=== PATIENT | female | born 1995 | race Caucasian/White ===

== ENCOUNTER 2018-11-02 12:47 | Emergency (ER) | payer BC ==
[2018-11-02 13:05] VITALS: BP 148/85
--- NOTE | 2018-11-02 13:51 | EDM.PDOC ---
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 The spotting changed from dark brown to bright red 2 days ago with increased pelvic cramping without radiation as well. She has had no chest, shoulder or other discomfort. No vomiting, fever or chills. 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 Denies: Fever, Chills, Diaphoresis HEENT: Denies: Throat Pain Respiratory: Denies: Shortness of Breath, Pleuritic Chest Pain Cardiovascular: Denies: Chest Pain GI/Abdominal: Reports: Abdominal Pain (low mid abd and pelvic). Denies: Nausea , Vomiting : Reports: Frequency. Denies: Dysuria Musculoskeletal: Denies: Back Pain Skin: Reports: No Symptoms Neurological: Reports: No Symptoms ED EXAM - Physical Exam Exam: See Below General Appearance: Alert, No Apparent Distress Eye Exam: Bilateral Eye: PERRL Throat/Mouth: Normal Inspection Head: Atraumatic Neck: Supple, Full Range of Motion Respiratory/Chest: No Respiratory Distress, Lungs Clear, Normal Breath Sounds GI/Abdominal Exam: Soft, Tender (very minimal tenderness R lower abd/pelvis). No: Guarding, Rebound Neurological: Alert, Oriented Skin Exam: Warm, Dry, Normal Color Course - Vital Signs Last Recorded V/S: Last Vital Signs Temp 98 F 11/02/18 13:02 Pulse 94 11/02/18 13:02 Resp 18 11/02/18 13:02 BP 148/85 H 11/02/18 13:02 Pulse Ox 100 11/02/18 13:02 Orthostatic Blood Pressure [ 123/85 Standing] Orthostatic Blood Pressure [ 117/78 Sitting] Orthostatic Blood Pressure [ 126/78 Supine] - Orders/Labs/Meds Labs: Laboratory Tests 11/02/18 11/02/18 11/02/18 Range/Units 13:24 13:34 13:34 WBC 8.51 (3.98-10.04) K/mm3 RBC 4.67 (3.98-5.22) M/mm3 Hgb 13.6 (11.2-15.7) gm/L Hct 40.8 (34.1-44.9) % MCV 87.4 (79.4-94.8) fl MCH 29.1 (25.6-32.2) pg MCHC 33.3 (32.2-35.5) g/dl RDW Std Deviation 39.0 (36.4-46.3) fL Plt Count 274 (182-369) K/mm3 MPV 9.9 (9.4-12.3) fl Neut % (Auto) 61.6 (34.0-71.1) % Lymph % (Auto) 30.9 (19.3-51.7) % [place] % (Auto) 5.8 (4.7-12.5) % Eos % (Auto) 1.2 (0.7-5.8) Baso % (Auto) 0.4 (0.1-1.2) % Neut # (Auto) 5.25 (1.56-6.13) K/mm3 Lymph # (Auto) 2.63 (1.18-3.74) K/mm3 [place] # (Auto) 0.49 H (0.24-0.36) K/mm3 Eos # (Auto) 0.10 (0.04-0.36) K/mm3 Baso # (Auto) 0.03 (0.01-0.08) K/mm3 HCG, Quant 5631.0 mIU/mL Blood Type B POSITIVE Gel Antibody Screen Negative - Re-Assessments/Exams Free Text/Narrative Re-Assessment/Exam: 11/02/18 14:56 Pelvic US has been done, shows slightly irregular gestational sac with measurements of 6 weeks, 1 day, there is some tissue seen within gest. sac showing no heart activity. 11/02/18 16:14 quant Hcg 5,600, correlates with loss of . Have discussed with patient and her , She does have a follow up appt. with Dr Sushil Sutton 2 days from now. Departure - Departure Time of Disposition: 15:28 Disposition: Home, Self-Care 01 Condition: Fair Clinical Impression: Nonviable - Discharge Information Instructions: Miscarriage, [id number] Referrals: Jazz Pan MD [Physician] - Forms: ED Department Discharge, ED Return to Work/School Form Additional Instructions: rest, you may take tylenol or ibuprofen if needed for pain, drink plenty of water to maintain hydration. See Dr Sushil Sutton as planned. Return to ED if soaking more than a pad per hour for more than 2 or 3 hours or otherwise as needed.
--- NOTE | 2018-11-02 14:36 | US ---
First trimester obstetrical ultrasound: Multiple real-time images were obtained transvaginally. Comparison: No previous study for current . Findings: Slightly irregular gestational sac is seen. Small subchorionic hemorrhage is noted. Small clump of tissue is seen within the gestational sac showing no heart activity. Prominent varicosities are noted within the left adnexa. Right and left ovaries are unremarkable. Impression: 1. Slightly irregular gestational sac having measurements of 6 weeks and 1 day. Clump of tissue is seen within the gestational sac showing no heart activity. Findings are suspicious for nonviable . Small subchorionic hemorrhage is seen. 2. Recommend follow-up study in 11 days to confirm nonviable if patient does not miscarry in the interim. 3. Varicosities within the left adnexa. Diagnostic code #3
== END 2018-11-02 16:15 | disposition home or self-care (01) ==
LOC: JD.ED 12:47
DX: O36.80X0 Pregnancy with inconclusive fetal viability, not applicable or unspecified (principal); E03.9 Hypothyroidism, unspecified; Z79.899 Other long term (current) drug therapy; Z3A.10 10 weeks gestation of pregnancy
CPT/HCPCS: 36415; 76817; 76817-26; 84702; 85025; 86850; 86900; 86901; 99282; 99284-25

== ENCOUNTER 2019-12-03 10:37 | Emergency (ER) | payer BC ==
[2019-12-03 10:47] VITALS: BP 125/79; PULSE 88
[2019-12-03] MEDS ORDERED: Acetaminophen 325 MG Tab PO ONE (11:37)
--- NOTE | 2019-12-03 11:38 | EDM.PDOC ---
ED HPI GENERAL MEDICAL PROBLEM - General Chief Complaint: Lower Extremity Injury/Pain Stated Complaint: INJURED RIGHT FOOT Time Seen by Provider: 12/03/19 11:22 Source of Information: Reports: Patient, RN Notes Reviewed History Limitations: Reports: No Limitations - History of Present Illness INITIAL COMMENTS - FREE TEXT/NARRATIVE: Patient is a 24-year-old female who presents to the ED for a right foot injury. Patient is 30 weeks . She states that around 5:30 this morning she was rushing around to get to work, carrying some things in her both hands when she fell down the stairs. The patient states that she ended up hurting her right foot, she is having most pain in her lateral midfoot area, there is some bruising and swelling noted to this area as well. The patient finds it hard to wiggle her toes due to the pain, she was checked out by TRUST MAIL CLERK regarding movement, and was cleared by OB for evaluation of her ankle/foot injury at this time. She is not having any numbness tingling into her toes, she did ice it while in OB, not having any pain further up the leg. She did not take any sort of pain medications at home for this. 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 ED EXAM, GENERAL - Physical Exam Exam: See Below Exam Limited By: No Limitations General Appearance: Alert, WD/WN, No Apparent Distress Eye Exam: Bilateral Eye: EOMI, Normal Inspection, PERRL Ears: Normal External Exam Nose: Normal Inspection Throat/Mouth: Normal Inspection, Normal Lips, Normal Teeth, Normal Gums, Normal Oropharynx, Normal Voice, No Airway Compromise Head: Atraumatic, Normocephalic Neck: Normal Inspection Respiratory/Chest: No Respiratory Distress, Lungs Clear, Normal Breath Sounds, No Accessory Muscle Use, Chest Non-Tender Cardiovascular: Normal Peripheral Pulses, Regular Rate, Rhythm, No Murmur GI/Abdominal: Normal Bowel Sounds, Soft, Non-Tender, No Distention, No Mass Extremities: Normal Inspection, Normal Capillary Refill, Limited Range of Motion (of R ankle/foot d/t pain, patient is still able to wiggle toes, but hurts to do so.) Neurological: Alert, Oriented, Normal Cognition, No Motor/Sensory Deficits Psychiatric: Normal Affect, Normal Mood Skin Exam: Warm, Dry, Intact, No Rash, Ecchymosis (R lateral midfoot) Course - Vital Signs Last Recorded V/S: Last Vital Signs Temp 97.3 F 12/03/19 10:44 Pulse 88 12/03/19 10:44 Resp 18 12/03/19 10:44 BP 125/79 12/03/19 10:44 Pulse Ox 99 12/03/19 10:44 - Orders/Labs/Meds Orders: Active Orders 24 hr Category Date Time Status Foot Comp Min 3V Rt [CR] Stat Exams 12/03/19 11:30 Ordered MIKE Bandage [Elastic Wrap] [OM.PC] Routine Oth 12/03/19 12:36 Ordered DME for Discharge [COMM] Routine Oth 12/03/19 12:36 Ordered Meds: Medications Discontinued Medications Generic Name Dose Route Start Last Admin Trade Name Freq PRN Reason Stop Dose Admin Acetaminophen 975 mg 12/03/19 11:37 12/03/19 11:44 Tylenol PO 12/03/19 11:38 975 mg NOW ONE Administration - Re-Assessments/Exams Free Text/Narrative Re-Assessment/Exam: 12/03/19 11:41 Patient presents to the ED for evaluation of her right foot/ankle injury. She was cleared by TRUST MAIL CLERK for further evaluation in the ER at this time. Patient will have to get x-rays of the right foot, I am hopeful that we can get enough of the ankle to evaluate any other sort of ankle injury. Patient will be given some Tylenol for pain relief at this time to see if it does not help. 12/03/19 12:37 X-ray was obtained of the patient's foot, there is no obvious bony fracture or abnormality noted. Reviewed by myself and Dr. Adrian. Official radiology read is pending. Patient did have a little bit of pain relief from the Tylenol , I will advise her to take Tylenol as much as needed for pain relief, and give her a few tablets of Percocet for pain relief not provided by Tylenol alone. She will be discharged home with Mike bandages and crutches for a foot sprain. Departure - Departure Time of Disposition: 12:39 Disposition: Home, Self-Care 01 Condition: Fair Clinical Impression: Right foot injury Qualifiers: Encounter type: initial encounter Qualified Code(s): S99.921A - Unspecified injury of right foot, initial encounter - Discharge Information *PRESCRIPTION DRUG MONITORING PROGRAM REVIEWED*: Yes *COPY OF PRESCRIPTION DRUG MONITORING REPORT IN PATIENT JOSE: No Prescriptions: Acetaminophen/oxyCODONE [Percocet 325-5 MG] 1 each PO Q6H PRN #12 tab PRN Reason: Pain Instructions: Pain Medicine Instructions, [id number] Referrals: Caitlin Ramirez PA-C [Primary Care Provider] - Forms: ED Department Discharge, ED Return to Work/School Form Additional Instructions: You have been evaluated in the ED for your right foot/ankle injury. Your x-ray demonstrated no obvious fracture or bony abnormality of your right foot/ankle. Please Mike wrap this for compression, and use the crutches as needed for further walking issues. Please use ice as tolerated to the affected area. Please try to elevate the affected area to relieve swelling. You may take Tylenol 500 mg q6 hrs for pain relief. Please do so until you have a tolerable level of pain with activity. Do not exceed 4000mg Tylenol in a 24 hour time period. You were given a prescription for a strong pain medication, oxycodone/ acetaminophen 5/325mg, please take 1 tab every 6 hours as needed for pain not relieved by Tylenol alone. Please note this medication does contain Tylenol in it, so do not take more than 4000 mg in a 24-hour time span. These medications can be addictive, so please take as few as possible to achieve adequate pain control. These meds can also be quite constipating, recommend that you increase your oral fluid intake and take a stool softener like MiraLAX while taking these medications. Do not drive while taking this medication. If your pain is not feeling much better in 10 days to 2 weeks time, recommend you have your injury re-evaluated. Please return to ED if your symptoms should change or worsen. Sepsis Event Note - Evaluation Sepsis Screening Result: No Definite Risk - Focused Exam Vital Signs: Vital Signs Temp Pulse Resp BP Pulse Ox 12/03/19 10:44 97.3 F 88 18 125/79 99 Date Exam was Performed: 12/03/19 Time Exam was Performed: 12:37 - My Orders Last 24 Hours: My Active Orders 12/03/19 11:30 Foot Comp Min 3V Rt [CR] Stat 12/03/19 12:36 MIKE Bandage [Elastic Wrap] [OM.PC] Routine DME for Discharge [COMM] Routine - Assessment/Plan Last 24 Hours: My Active Orders 12/03/19 11:30 Foot Comp Min 3V Rt [CR] Stat 12/03/19 12:36 MIKE Bandage [Elastic Wrap] [OM.PC] Routine DME for Discharge [COMM] Routine
--- NOTE | 2019-12-03 13:35 | CR ---
Right foot: Four views of the right foot were obtained. Joint spaces are preserved. No fracture, dislocation or other bony abnormality is identified. Impression: 1. No abnormality is appreciated on right foot exam. Diagnostic code #1 This report was dictated in MDT
== END 2019-12-03 12:58 | disposition home or self-care (01) ==
LOC: JD.ED 10:37
DX: O9A.213 Injury, poisoning and certain other consequences of external causes complicating pregnancy, third trimester (principal); S99.921A Unspecified injury of right foot, initial encounter; O99.283 Endocrine, nutritional and metabolic diseases complicating pregnancy, third trimester; E03.9 Hypothyroidism, unspecified; Z3A.30 30 weeks gestation of pregnancy
CPT/HCPCS: 73630; 99283; A9270

== ENCOUNTER 2020-02-05 05:40 | Inpatient (IN) | payer BC ==
[~2020-02-05 05:40] MED LIST: Sodium Chloride 0.9% 10 ML Syringe FLUSH PRN
[2020-02-05] MEDS: Lactated Ringers 1,000 ML IV SCH ×2 (06:00→06:33)
[2020-02-05] MEDS ORDERED: ceFAZolin 1 GM Vial ONE (06:58)
[2020-02-05] MEDS ORDERED: Ondansetron 4 MG/2 ML SDV ONE (06:58)
[2020-02-05] MEDS ORDERED: Ketorolac 30 MG/ML SDV ONE (06:58)
[2020-02-05] MEDS ORDERED: Morphine PF 1 MG/ML Amp ONE (06:58)
[2020-02-05] MEDS ORDERED: Lactated Ringers 2,000 ML ONE (06:58)
[2020-02-05] MEDS ORDERED: Oxytocin 10 Units/1 ML SDV ONE (06:58)
[2020-02-05] MEDS ORDERED: Phenylephrine 1% 10 MG/ML SDV ONE (06:58)
[2020-02-05] MEDS ORDERED: ceFAZolin 2 GM in Premix Bag 1 BAG IV ONE (07:00)
[2020-02-05] MEDS ORDERED: Citric Acid/Sodium Citrate Solution 30 ML Cup PO ONE (07:00)
[2020-02-05] MEDS ORDERED: Metoclopramide 10 MG/2 ML SDV IVPUSH ONE (07:00)
--- NOTE | 2020-02-05 07:24 | PCM.OPNOTE ---
- General Post-Op/Procedure Note Date of Surgery/Procedure: 02/05/20 Operative Procedure(s): Repeat low transverse Findings: Minimal scar tissue between the rectus and fascia. Minimal scar tissue between the uterus and bladder. Baby boy in vertex presentation with weight of 7 lbs 8 oz and APGARS of 9 & 9. Normal appearance of the uterus, fallopian tubes, and ovaries . Pre Op Diagnosis: 39 weeks gestation. Hx of Post-Op Diagnosis: Same Anesthesia Technique: Spinal Primary Surgeon: Jazz Pan Secondary Surgeon: Nghia William Anesthesia Provider: Maryam Jones Reason Switch Coupler Was Necessary: BMI of patient. Speed/safety of procedure Pathology: Cord blood collected. Placenta discarded Fluid Replacement, Intraop: 900 Output, Urine Amount: 150 EBL in mLs: 10,000 Complications: None Condition: Good Free Text/Narrative:: The risks, benefits, indications, potential complications, and alternatives were explained to the patient and informed consent obtained. After induction of anesthesia, the patient was placed in a supine position and then draped and prepped in the usual sterile manner. A Pfannenstiel incision was made and carried down through the subcutaneous tissue to the fascia. Fascial incision was made and extended transversely. The fascia was from the underlying rectus tissue superiorly and inferiorly. The peritoneum was identified and entered. Peritoneal incision was extended longitudinally. The utero-vesical peritoneal reflection was incised transversely and the bladder flap was bluntly freed from the lower uterine segment. A low transverse uterine incision was made sharply with a scalpel and extended bluntly in a cephalocaudad direction. Brisk bleeding from sinuses noted with initial hysterotomy creation. A baby boy was delivered from a vertex presentation with APGARS as above. After the umbilical cord was clamped and cut cord blood was obtained for evaluation. The placenta was removed intact and appeared normal. The uterus was exteriorized and cleared of clots. Bleeding now at more normal level. The uterine outline, tubes and ovaries appeared normal. The uterine incision was closed with running locked sutures of 0 Vicryl. Hemostasis was obtained with a second imbricating layer of 0 vicryl. The uterus was then placed back into the abdomen. The infracolic gutters were cleared of blood clots. The fascia was then reapproximated with running sutures of 0 Vicryl. The subcutaneous tissue was irrigated with sterile warm normal saline, hemostasis obtained with cautery. This layer was also closed with a running suture of 0 Vicryl. The skin was reapproximated with running Subcuticular 4-0 Monocryl sutures. Instrument, sponge, and needle counts were correct prior the abdominal closure and at the conclusion of the case.
--- NOTE | 2020-02-05 07:27 | PCM.PREANE ---
Preanesthetic Assessment - Anesthesia/Transfusion/Family Hx Anesthesia History: Prior Anesthesia Without Reaction Family History of Anesthesia Reaction: No Transfusion History: No Prior Transfusion(s) Intubation History: Unknown - Review of Systems General: No Symptoms Pulmonary: No Symptoms (COVID negative) Cardiovascular: No Symptoms Gastrointestinal: No Symptoms (GERD with ), Constipation (with ) Neurological: No Symptoms Other: Reports: None, Easy Bruising, Thyroid Problems (Hypothyroid) - Physical Assessment NPO Status Date: 02/04/20 NPO Status Time: 23:30 Vital Signs: Last Vital Signs Temp 37.1 C 02/05/20 05:57 Pulse 76 02/05/20 05:57 Resp 16 02/05/20 05:57 BP 126/93 H 02/05/20 06:07 Pulse Ox 98 02/05/20 05:57 Height: 1.73 m Weight: 91.535 kg ASA Class: 2 Mental Status: Alert & Oriented x3 Airway Class: Mallampati = 2 Dentition: Reports: Normal Dentition, Caries Thyro-Mental Finger Breadths: 3 Mouth Opening Finger Breadths: 3 ROM/Head Extension: Full Lungs: Clear to Auscultation, Normal Respiratory Effort Cardiovascular: Regular Rate, Regular Rhythm, No Murmurs - Lab Values: Laboratory Last Values WBC 10.68 K/mm3 (3.98-10.04) H 02/05/20 06:08 RBC 4.35 M/mm3 (3.98-5.22) 02/05/20 06:08 Hgb 13.1 gm/dl (11.2-15.7) 02/05/20 06:08 Hct 39.7 % (34.1-44.9) 02/05/20 06:08 MCV 91.3 fl (79.4-94.8) D 02/05/20 06:08 MCH 30.1 pg (25.6-32.2) 02/05/20 06:08 MCHC 33.0 g/dl (32.2-35.5) 02/05/20 06:08 RDW Std Deviation 42.2 fL (36.4-46.3) 02/05/20 06:08 Plt Count 157 K/mm3 (182-369) L D 02/05/20 06:08 MPV 11.8 fl (9.4-12.3) 02/05/20 06:08 Neut % (Auto) 61.5 % (34.0-71.1) 02/05/20 06:08 Lymph % (Auto) 27.3 % (19.3-51.7) 02/05/20 06:08 [place] % (Auto) 8.9 % (4.7-12.5) 02/05/20 06:08 Eos % (Auto) 1.9 (0.7-5.8) 02/05/20 06:08 Baso % (Auto) 0.2 % (0.1-1.2) 02/05/20 06:08 Neut # (Auto) 6.57 K/mm3 (1.56-6.13) H 02/05/20 06:08 Lymph # (Auto) 2.92 K/mm3 (1.18-3.74) 02/05/20 06:08 [place] # (Auto) 0.95 K/mm3 (0.24-0.36) H 02/05/20 06:08 Eos # (Auto) 0.20 K/mm3 (0.04-0.36) 02/05/20 06:08 Baso # (Auto) 0.02 K/mm3 (0.01-0.08) 02/05/20 06:08 Above labs reviewed and noted and within acceptable ranges to proceed with scheduled procedure. 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: , Spontaneous , Other (See Below) Other OB/BYN History: 2013 Endocrine/Metabolic History: Reports: Hypothyroidism - Past Surgical History GI Surgical History: Reports: Appendectomy Female Surgical History: Reports: Section - SUBSTANCE USE Smoking Status *Q: Never Smoker Tobacco Use Within Last Twelve Months: No Second Hand Smoke Exposure: No Recreational Drug Use History: No - HOME MEDS Home Medications: Home Meds Prenat 115/Iron Fum/Folic/Dss [ 19 Tablet] 1 tab PO DAILY 12/03/19 [ History] Levothyroxine 75 mcg PO ACBREAKFAST 02/05/20 [History] - CURRENT (IN HOUSE) MEDS Current Meds: Current Medications Cefazolin Sodium/Dextrose 2 gm (/ Premix) 50 mls @ 100 mls/hr IV ONETIME ONE Stop: 02/05/20 07:29 Lactated Ringer's (Ringers, Lactated) 1,000 mls @ 125 mls/hr IV ASDIRECTED YECENIA Last Admin: 02/05/20 06:33 Dose: 125 mls/hr Oxytocin/Lactated Ringer's (Pitocin In Lr 10 Units/1,000 Ml) 10 unit in 1,000 mls @ 100 mls/hr IV ASDIRECTED YECENIA; Protocol Sodium Chloride (Saline Flush) 10 ml FLUSH ASDIRECTED PRN PRN Reason: Keep Vein Open Discontinued Medications Cefazolin Sodium (Ancef) Confirm Administered Dose 2 gm .ROUTE .STK-MED ONE Stop: 02/05/20 06:59 Citric Acid/Sodium Citrate (Bicitra Solution) 30 ml PO ONETIME ONE Stop: 02/05/20 07:01 Last Admin: 02/05/20 07:00 Dose: 30 ml Lactated Ringer's (Ringers, Lactated) Confirm Administered Dose 2,000 mls @ as directed .ROUTE .STK-MED ONE Stop: 02/05/20 06:59 Ketorolac Tromethamine (Toradol) Confirm Administered Dose 30 mg .ROUTE .STK- MED ONE Stop: 02/05/20 06:59 Metoclopramide HCl (Reglan) 10 mg IVPUSH ONETIME ONE Stop: 02/05/20 07:01 Last Admin: 02/05/20 07:00 Dose: 10 mg Morphine Sulfate (Duramorph Pf) Confirm Administered Dose 1 mg .ROUTE .STK-MED ONE Stop: 02/05/20 06:59 Ondansetron HCl (Zofran) Confirm Administered Dose 4 mg .ROUTE .STK-MED ONE Stop: 02/05/20 06:59 Oxytocin (Pitocin) Confirm Administered Dose 10 unit .ROUTE .STK-MED ONE Stop: 02/05/20 06:59 Phenylephrine HCl (Mohan-Synephrine) Confirm Administered Dose 10 mg .ROUTE .STK- MED ONE Stop: 02/05/20 06:59
[2020-02-05] MEDS ORDERED: Oxytocin/Lactated Ringers 10 UNIT/1,000 ML BAG IV SCH (07:30)
[2020-02-05] MEDS ORDERED: ePHEDrine 50 MG/ML SDV IVPUSH PRN (07:53)
[2020-02-05] MEDS ORDERED: Ondansetron 4 MG/2 ML SDV IVPUSH PRN (07:53)
[2020-02-05] MEDS ORDERED: fentaNYL 100 MCG/2 ML SDV IVPUSH PRN (07:53)
[2020-02-05] MEDS ORDERED: diphenhydrAMINE 50 MG/ML SDV IVPUSH PRN ×2 (07:53→10:23)
[2020-02-05] MEDS ORDERED: HYDROmorphone 0.5 MG/0.5 ML Syringe IVPUSH PRN (07:54)
[2020-02-05] MEDS ORDERED: Phenylephrine 1 MG in Sodium Chloride 0.9% 10 ML IV SCH (08:00)
[2020-02-05] MEDS ORDERED: fentaNYL 100 MCG/2 ML SDV ONE (08:18)
--- NOTE | 2020-02-05 08:39 | PCM.POSTAN ---
POST ANESTHESIA ASSESSMENT - MENTAL STATUS Mental Status: Alert - VITAL SIGNS Vital Signs: Last Vital Signs Temp 98 C 02/05/20 0830 Pulse 76 02/05/20 0830 Resp 11 02/05/20 0830 BP 109/65 02/05/20 0830 Pulse Ox 98 02/05/20 0830 - CARDIOVASCULAR CV Status: Pulse Rate WNL, Blood Pressure Stable - GASTROINTESTINAL GI Status: No Symptoms - POST OP HYDRATION Hydration Status: Adequate & Stable
[2020-02-05] MEDS ORDERED: Naloxone 0.4 MG/ML SDV IVPUSH PRN (10:23)
[2020-02-05] MEDS ORDERED: Ondansetron 4 MG/2 ML SDV IV PRN (10:23)
[2020-02-05] MEDS ORDERED: Dextrose 5%-Lactated Ringers 1,000 ML IV SCH (10:23)
[2020-02-05] MEDS ORDERED: Docusate Sodium 100 MG Cap PO PRN (10:23)
[2020-02-05] MEDS ORDERED: Acetaminophen/oxyCODONE 325-5 MG Tab PO PRN (10:23)
[2020-02-05] MEDS ORDERED: Promethazine 12.5 MG in Sodium Chloride 0.9% 50 ML IV PRN (14:23)
[2020-02-05] MEDS: Ketorolac 30 MG/ML SDV IVPUSH SCH ×2 (14:35→22:51)
[2020-02-05] MEDS ORDERED: Lactated Ringers 500 ML IV ONE (15:13)
--- NOTE | 2020-02-05 15:45 | PCM.SN.2 ---
- Free Text/Narrative Note: 1530 Patient with 2 large emesis episodes. Has taken small-moderate amount of PO. UOP low, however, HR and BP all appropriate. Exam shows abdomen to be soft, appropriately tender. No suspicion of on-going bleeding. Likely low UOP from above concerns in addition to 1L EBL at surgery. Will give a 500 cc bolus. Continue to monitor otherwise routinely Jazz Pan MD
[2020-02-06] MEDS ORDERED: Ketorolac 30 MG/ML SDV ONE (05:10)
[2020-02-06] MEDS: Ketorolac 30 MG/ML SDV IVPUSH SCH (05:13)
[2020-02-06] MEDS: Levothyroxine 75 MCG Tab PO SCH (05:14)
--- NOTE | 2020-02-06 07:51 | PCM.SN.2 ---
- Free Text/Narrative Note: PPD#1/POD#! Afebrile, chest clear to auscultation, Heart normal rate and rhythm, abdomen bowel sounds present, uterus 3 FB below umbilicus, Incision dressing ok. No heavy vaginal bleeding, no leg cramps.
[2020-02-06] MEDS: Acetaminophen/oxyCODONE 325-5 MG Tab PO PRN ×2 (12:42→17:32)
[2020-02-06] MEDS: Ibuprofen 600 MG Tab PO PRN (20:56)
[2020-02-07] MEDS: Ibuprofen 600 MG Tab PO PRN ×2 (03:09→10:34)
[2020-02-07] MEDS: Levothyroxine 75 MCG Tab PO SCH (05:09)
[2020-02-07 10:16] VITALS: BP 118/70; PULSE 90
--- NOTE | 2020-02-07 11:07 | PCM.DCSUM1 ---
Discharge Summary - Hospital Course Free Text/Narrative:: [facility] Post-Op/Procedure Note Patient Name: JUNO HERRERA Date of : 89 Patient Status: Inpatient Attending Provider: Jazz Pan Date: 02/05/20 07:24 Initialization Date: 02/05/20 07:24 - General Post-Op/Procedure Note Date of Surgery/Procedure: 02/05/20 Operative Procedure(s): Repeat low transverse Findings: Minimal scar tissue between the rectus and fascia. Minimal scar tissue between the uterus and bladder. Baby boy in vertex presentation with weight of 7 lbs 8 oz and APGARS of 9 & 9. Normal appearance of the uterus, fallopian tubes, and ovaries . Pre Op Diagnosis: 39 weeks gestation. Hx of Post-Op Diagnosis: Same Anesthesia Technique: Spinal Primary Surgeon: Jazz Pan Secondary Surgeon: Nghia William Anesthesia Provider: Maryam Jones Reason Outside Installation Machinist Was Necessary: BMI of patient. Speed/safety of procedure Pathology: Cord blood collected. Placenta discarded Fluid Replacement, Intraop: 900 Output, Urine Amount: 150 EBL in mLs: 10,000 Complications: None Condition: Good Free Text/Narrative:: The risks, benefits, indications, potential complications, and alternatives were explained to the patient and informed consent obtained. After induction of anesthesia, the patient was placed in a supine position and then draped and prepped in the usual sterile manner. A Pfannenstiel incision was made and carried down through the subcutaneous tissue to the fascia. Fascial incision was made and extended transversely. The fascia was from the underlying rectus tissue superiorly and inferiorly. The peritoneum was identified and entered. Peritoneal incision was extended longitudinally. The utero-vesical peritoneal reflection was incised transversely and the bladder flap was bluntly freed from the lower uterine segment. A low transverse uterine incision was made sharply with a scalpel and extended bluntly in a cephalocaudad direction. Brisk bleeding from sinuses noted with initial hysterotomy creation. A baby boy was delivered from a vertex presentation with APGARS as above. After the umbilical cord was clamped and cut cord blood was obtained for evaluation. The placenta was removed intact and appeared normal. The uterus was exteriorized and cleared of clots. Bleeding now at more normal level. The uterine outline, tubes and ovaries appeared normal. The uterine incision was closed with running locked sutures of 0 Vicryl. Hemostasis was obtained with a second imbricating layer of 0 vicryl. The uterus was then placed back into the abdomen. The infracolic gutters were cleared of blood clots. The fascia was then reapproximated with running sutures of 0 Vicryl. The subcutaneous tissue was irrigated with sterile warm normal saline, hemostasis obtained with cautery. This layer was also closed with a running suture of 0 Vicryl. The skin was reapproximated with running Subcuticular 4-0 Monocryl sutures. Instrument, sponge, and needle counts were correct prior the abdominal closure and at the conclusion of the case. HPI Initial Comments: [facility] Post-Op/Procedure Note Patient Name: JUNO HERRERA Date of : 89 Patient Status: Inpatient Attending Provider: Jazz Pan Date: 02/05/20 07:24 Initialization Date: 02/05/20 07:24 - General Post-Op/Procedure Note Date of Surgery/Procedure: 02/05/20 Operative Procedure(s): Repeat low transverse Findings: Minimal scar tissue between the rectus and fascia. Minimal scar tissue between the uterus and bladder. Baby boy in vertex presentation with weight of 7 lbs 8 oz and APGARS of 9 & 9. Normal appearance of the uterus, fallopian tubes, and ovaries . Pre Op Diagnosis: 39 weeks gestation. Hx of Post-Op Diagnosis: Same Anesthesia Technique: Spinal Primary Surgeon: Jazz Pan Secondary Surgeon: Nghia William Anesthesia Provider: Maryam Jones Reason Outside Installation Machinist Was Necessary: BMI of patient. Speed/safety of procedure Pathology: Cord blood collected. Placenta discarded Fluid Replacement, Intraop: 900 Output, Urine Amount: 150 EBL in mLs: 10,000 Complications: None Condition: Good Free Text/Narrative:: The risks, benefits, indications, potential complications, and alternatives were explained to the patient and informed consent obtained. After induction of anesthesia, the patient was placed in a supine position and then draped and prepped in the usual sterile manner. A Pfannenstiel incision was made and carried down through the subcutaneous tissue to the fascia. Fascial incision was made and extended transversely. The fascia was from the underlying rectus tissue superiorly and inferiorly. The peritoneum was identified and entered. Peritoneal incision was extended longitudinally. The utero-vesical peritoneal reflection was incised transversely and the bladder flap was bluntly freed from the lower uterine segment. A low transverse uterine incision was made sharply with a scalpel and extended bluntly in a cephalocaudad direction. Brisk bleeding from sinuses noted with initial hysterotomy creation. A baby boy was delivered from a vertex presentation with APGARS as above. After the umbilical cord was clamped and cut cord blood was obtained for evaluation. The placenta was removed intact and appeared normal. The uterus was exteriorized and cleared of clots. Bleeding now at more normal level. The uterine outline, tubes and ovaries appeared normal. The uterine incision was closed with running locked sutures of 0 Vicryl. Hemostasis was obtained with a second imbricating layer of 0 vicryl. The uterus was then placed back into the abdomen. The infracolic gutters were cleared of blood clots. The fascia was then reapproximated with running sutures of 0 Vicryl. The subcutaneous tissue was irrigated with sterile warm normal saline, hemostasis obtained with cautery. This layer was also closed with a running suture of 0 Vicryl. The skin was reapproximated with running Subcuticular 4-0 Monocryl sutures. Instrument, sponge, and needle counts were correct prior the abdominal closure and at the conclusion of the case. Brief History: [facility] . Post-Op/Procedure Note. Patient Name: JUNO HERRERA [facility] Record Number: [id number]. Date of : Patient Status: Inpatient. Attending Provider: Jazz Pan CAccount Number : [id number]. Date: 02/05/20 07:24Initialization Date: 02/05/20 07:24. - General Post-Op/Procedure Note. Date of Surgery/Procedure: 02/05/20. Operative Procedure(s): Repeat low transverse . Findings: Minimal scar tissue between the rectus and fascia. Minimal scar tissue between the uterus and bladder. Baby boy in vertex presentation with weight of 7 lbs 8 oz and APGARS of 9 & 9. Normal appearance of the uterus, fallopian tubes, and ovaries . Pre Op Diagnosis: 39 weeks gestation. Hx of . Post-Op Diagnosis: Same. Anesthesia Technique: Spinal. Primary Surgeon: Jazz Pan. Secondary Surgeon: Nghia William. Anesthesia Provider: Maryam Jones. Reason Outside Installation Machinist Was Necessary: BMI of patient. Speed/safety of procedure. Pathology: Cord blood collected. Placenta discarded. Fluid Replacement, Intraop: 900. Output, Urine Amount: 150. EBL in mLs: 10,000. Complications: None. Condition: Good. Free Text/Narrative:: The risks, benefits, indications, potential complications, and alternatives were explained to the patient and informed consent obtained. After induction of anesthesia, the patient was placed in a supine position and then draped and prepped in the usual sterile manner. A Pfannenstiel incision was made and carried down through the subcutaneous tissue to the fascia. Fascial incision was made and extended transversely. The fascia was from the underlying rectus tissue superiorly and inferiorly. The peritoneum was identified and entered. Peritoneal incision was extended longitudinally. The utero-vesical peritoneal reflection was incised transversely and the bladder flap was bluntly freed from the lower uterine segment. A low transverse uterine incision was made sharply with a scalpel and extended bluntly in a cephalocaudad direction. Brisk bleeding from sinuses noted with initial hysterotomy creation. A baby boy was delivered from a vertex presentation with APGARS as above. After the umbilical cord was clamped and cut cord blood was obtained for evaluation. The placenta was removed intact and appeared normal. The uterus was exteriorized and cleared of clots. Bleeding now at more normal level. The uterine outline, tubes and ovaries appeared normal. The uterine incision was closed with running locked sutures of 0 Vicryl. Hemostasis was obtained with a second imbricating layer of 0 vicryl. The uterus was then placed back into the abdomen. The infracolic gutters were cleared of blood clots. The fascia was then reapproximated with running sutures of 0 Vicryl. The subcutaneous tissue was irrigated with sterile warm normal saline, hemostasis obtained with cautery. This layer was also closed with a running suture of 0 Vicryl. The skin was reapproximated with running Subcuticular 4-0 Monocryl sutures. Instrument, sponge, and needle counts were correct prior the abdominal closure and at the conclusion of the case. Diagnosis: Stroke: No - Discharge Data Discharge Date: 02/07/20 Discharge Disposition: Home, Self-Care 01 Condition: Good - Referral to Home Health Primary Care Physician: Caitlin Ramirez PA-C - Discharge Diagnosis/Problem(s) (1) 39 weeks gestation of SNOMED Code(s): 96615164 ICD Code: Z3A.39 - 39 WEEKS GESTATION OF Status: Acute Current Visit: Yes (2) H/O section SNOMED Code(s): 103082242 ICD Code: Z98.891 - HISTORY OF UTERINE SCAR FROM PREVIOUS SURGERY Status: Acute Current Visit: Yes (3) Hx of section complicating SNOMED Code(s): 828807153, 122581733 ICD Code: O34.219 - MATERNAL CARE FOR UNSP TYPE SCAR FROM PREVIOUS DEL Status: Acute Current Visit: Yes (4) Vulvar burning SNOMED Code(s): 022711557 ICD Code: N94.89 - OTH COND ASSOC W FEMALE GENITAL ORGANS AND MENSTRUAL CYCLE Status: Acute Current Visit: Yes - Patient Summary/Data Operative Procedure(s) Performed: Repeat low transverse Complications: none Consults: none Hospital Course: uneventful - Patient Instructions Diet: Usual Diet as Tolerated Driving: Do Not Drive (x2 weeks) Showering/Bathing: May Shower, No Tub Bathing/Swimming (x6 weeks) Wound/Incision Care: Keep Operative Site/Wound Site Clean and Dry Notify Provider of: Fever, Increased Pain, Swelling and Redness, Drainage, Nausea and/or Vomiting - Discharge Plan *PRESCRIPTION DRUG MONITORING PROGRAM REVIEWED*: Not Applicable *COPY OF PRESCRIPTION DRUG MONITORING REPORT IN PATIENT JOSE: Not Applicable Prescriptions/Med Rec: Nystatin/Triamcinolone Crm [Mycolog Crm] 30 gm .XX TID #1 tube Home Medications: Home Meds Prenat 115/Iron Fum/Folic/Dss [ 19 Tablet] 1 tab PO DAILY 12/03/19 [ History] Levothyroxine 75 mcg PO ACBREAKFAST 02/05/20 [History] Docusate Sodium [Colace] 100 mg PO Q12H PRN cap 02/07/20 [Rx] Ibuprofen [Motrin] 600 mg PO Q6H PRN tablet 02/07/20 [Rx] Nystatin/Triamcinolone Crm [Mycolog Crm] 30 gm .XX TID #1 tube 02/07/20 [Rx] Referrals: Jazz Pan MD [Physician] - (call Saturday to schedule appointment) - Discharge Summary/Plan Comment DC Time >30 min.: No - Patient Data Vitals - Most Recent: Last Vital Signs Temp 98.1 F 02/07/20 09:54 Pulse 90 02/07/20 09:54 Resp 15 02/07/20 09:54 BP 118/70 02/07/20 09:54 Pulse Ox 98 02/07/20 09:54 Weight - Most Recent: 201 lb 12.8 oz I&O - Last 24 hours: Intake & Output 02/06/20 02/07/20 02/07/20 22:59 06:59 14:59 Intake Total 240 Balance 240 Med Orders - Current: Current Medications Diphenhydramine HCl (Benadryl) 25 mg IVPUSH Q6H PRN PRN Reason: Itching or Nausea Docusate Sodium (Colace) 100 mg PO Q12H PRN PRN Reason: Constipation Last Admin: 02/06/20 20:56 Dose: 100 mg Promethazine HCl 12.5 mg/ (Sodium Chloride) 50.5 mls @ 100 mls/hr IV Q6H PRN PRN Reason: Nausea Last Admin: 02/05/20 14:40 Dose: 100 mls/hr Ibuprofen (Motrin) 600 mg PO Q6H PRN PRN Reason: mild pain or fever Last Admin: 02/07/20 10:34 Dose: 600 mg Levothyroxine Sodium (Levothyroxine) 75 mcg PO ACBREAKFAST YECENIA Last Admin: 02/07/20 05:09 Dose: Not Given Naloxone HCl (Narcan) 0.1 mg IVPUSH SEECOMMENT PRN PRN Reason: Respiratory Depression Ondansetron HCl (Zofran) 4 mg IV Q8H PRN PRN Reason: Nausea/Vomiting Oxycodone/Acetaminophen (Percocet 325-5 Mg) 1 tab PO Q4H PRN PRN Reason: Pain (moderate 4-6) Last Admin: 02/06/20 17:32 Dose: 1 tab Oxycodone/Acetaminophen (Percocet 325-5 Mg) 2 tab PO Q4H PRN PRN Reason: Pain (severe 7-10) Discontinued Medications Cefazolin Sodium (Ancef) Confirm Administered Dose 2 gm .ROUTE .STK-MED ONE Stop: 02/05/20 06:59 Citric Acid/Sodium Citrate (Bicitra Solution) 30 ml PO ONETIME ONE Stop: 02/05/20 07:01 Last Admin: 02/05/20 07:00 Dose: 30 ml Diphenhydramine HCl (Benadryl) 25 mg IVPUSH Q6H PRN PRN Reason: pruritis Ephedrine Sulfate (Ephedrine Sulfate) 5 mg IVPUSH ASDIRECTED PRN PRN Reason: Hypotension Fentanyl (Sublimaze) 50 mcg IVPUSH Q5M PRN PRN Reason: Pain Fentanyl (Sublimaze) Confirm Administered Dose 100 mcg .ROUTE .[employer]-MED ONE Stop: 02/05/20 08:19 Hydromorphone HCl (Dilaudid) 0.5 mg IVPUSH ONETIME PRN PRN Reason: Pain Cefazolin Sodium/Dextrose 2 gm (/ Premix) 50 mls @ 100 mls/hr IV ONETIME ONE Stop: 02/05/20 07:29 Last Admin: 02/06/20 06:04 Dose: Not Given Lactated Ringer's (Ringers, Lactated) 1,000 mls @ 125 mls/hr IV ASDIRECTED [facility] Last Admin: 02/05/20 06:33 Dose: 125 mls/hr Oxytocin/Lactated Ringer's (Pitocin In Lr 10 Units/1,000 Ml) 10 unit in 1,000 mls @ 100 mls/hr IV ASDIRECTED YECENIA; Protocol Lactated Ringer's (Ringers, Lactated) Confirm Administered Dose 2,000 mls @ as directed .ROUTE .STH2[facility]-MED ONE Stop: 02/05/20 06:59 Phenylephrine HCl 1 mg/ Sodium (Chloride) 10.1 mls @ 1 mls/sec IV TITRATE YECENIA; Protocol Dextrose/Lactated Ringer's (Dextrose 5%-Lactated Ringers) 1,000 mls @ 125 mls/ hr IV ASDIRECTED YECENIA Stop: 02/05/20 18:22 Last Admin: 02/05/20 11:23 Dose: 125 mls/hr Lactated Ringer's (Ringers, Lactated) 500 mls @ 500 mls/hr IV .BOLUS ONE Stop: 02/05/20 16:12 Last Admin: 02/05/20 15:37 Dose: 500 mls/hr Ketorolac Tromethamine (Toradol) Confirm Administered Dose 30 mg .ROUTE .STK- MED ONE Stop: 02/05/20 06:59 Ketorolac Tromethamine (Toradol) 30 mg IVPUSH Q6H YECENIA Stop: 02/06/20 02:31 Last Admin: 02/06/20 05:13 Dose: 30 mg Ketorolac Tromethamine (Toradol) Confirm Administered Dose 30 mg .ROUTE .STK- MED ONE Stop: 02/06/20 05:11 Last Admin: 02/06/20 05:14 Dose: Not Given Metoclopramide HCl (Reglan) 10 mg IVPUSH ONETIME ONE Stop: 02/05/20 07:01 Last Admin: 02/05/20 07:00 Dose: 10 mg Morphine Sulfate (Duramorph Pf) Confirm Administered Dose 1 mg .ROUTE .STK-MED ONE Stop: 02/05/20 06:59 Ondansetron HCl (Zofran) Confirm Administered Dose 4 mg .ROUTE .STK-MED ONE Stop: 02/05/20 06:59 Ondansetron HCl (Zofran) 4 mg IVPUSH ONETIME PRN PRN Reason: Nausea/Vomiting Oxytocin (Pitocin) Confirm Administered Dose 10 unit .ROUTE .STK-MED ONE Stop: 02/05/20 06:59 Phenylephrine HCl (Mohan-Synephrine) Confirm Administered Dose 10 mg .ROUTE .STK- MED ONE Stop: 02/05/20 06:59 Sodium Chloride (Saline Flush) 10 ml FLUSH ASDIRECTED PRN PRN Reason: Keep Vein Open
--- NOTE | 2020-02-07 17:51 | PCM48HPAN ---
Post Anesthesia Note - EVALUATION WITHIN 48HRS OF ANESTHETIC Vital Signs in Normal Range: Yes Patient Participated in Evaluation: Yes Respiratory Function Stable: Yes Airway Patent: Yes Cardiovascular Function Stable: Yes Hydration Status Stable: Yes Pain Control Satisfactory: Yes Nausea and Vomiting Control Satisfactory: Yes Mental Status Recovered: Yes Vital Signs: Last Vital Signs Temp 36.7 C 02/07/20 09:54 Pulse 90 02/07/20 09:54 Resp 15 02/07/20 09:54 BP 118/70 02/07/20 09:54 Pulse Ox 98 02/07/20 09:54
== END 2020-02-07 12:00 | disposition home or self-care (01) | DRG 540 ==
LOC: JD.OB 05:40
PROVIDERS: ADMIT Obstetrics & Gynecology; ATTEND Obstetrics & Gynecology
PROC: 10D00Z1 Extraction of Products of Conception, Low, Open Approach (ICD-10-PCS; principal; 2020-02-05)
DX: O34.211 Maternal care for low transverse scar from previous cesarean delivery (principal); Z3A.39 39 weeks gestation of pregnancy; Z37.0 Single live birth; O99.284 Endocrine, nutritional and metabolic diseases complicating childbirth; E03.9 Hypothyroidism, unspecified; Z79.890 Hormone replacement therapy
CPT/HCPCS: 01961; 36415; 59025; 85025; 85027; 86592; 86850; 86900; 86901; 94762; A9270-GY; J0690; J1885; J2274; J2370; J2405; J2550; J2590; J2765; J3010; J7050; J7120; J7121